=== PATIENT | male | born 1990 | race Caucasian/White ===

== ENCOUNTER → 2018-02-08 07:42 | Day surgery (SDC) | payer BC ==
--- NOTE | 2018-02-02 22:24 | HP ---
PREOPERATIVE HISTORY AND PHYSICAL: DATE OF SURGERY/ADMISSION: 02/08/18 - [facility] DATE OF OFFICE VISIT/ENCOUNTER: 01/13/18 ATTENDING SURGEON: Avril Garcia MD * (DICTATED BY TONY LONGO) PROCEDURE: Left ring finger excision mass. CHIEF COMPLAINT: Mass, left ring finger. HISTORY OF PRESENT ILLNESS: This is a 27-year-old male. 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 He has had it for about 8 months. It bothers him when he curve saw operator things. He does weight lifting regularly and he has trouble doing that because of this lump. There is no injury that he recalls. He denies any associated numbness or tingling. He does not take medications for this problem. After evaluation by Dr. Garcia, he has consented to proceed with surgical intervention at this time in the form of a left ring finger excision mass. PAST MEDICAL HISTORY: Unremarkable. PAST SURGICAL HISTORY: [place] teeth extraction. CURRENT MEDICATIONS: None. ALLERGIES: No known drug allergies. FAMILY MEDICAL HISTORY: Heart disease. SOCIAL HISTORY: The patient is employed as a pharmacist at [employer]. He denies tobacco use and recreational drug use. He does drink alcohol on a social basis. REVIEW OF SYSTEMS: General: Negative for fevers, chills, or night sweats. No known anesthesia problems. HEENT: Negative for headache, lightheadedness, or syncopal episodes. Integumentary: Negative for abrasions, lesions, or open wounds. Cardiothoracic: Negative for hypertension, chest pain, palpitations, or edema. Pulmonary: Negative for shortness of breath with exertion, chronic cough, and COPD. GI: Negative for nausea, vomiting, diarrhea, constipation, or GERD. : Negative for nocturia, urinary frequency, urgency, history of UTIs , or kidney problems. Musculoskeletal: Positive for current complaint. Neurological: Negative for paresthesias, numbness, history of seizure, stroke, or epilepsy. Endocrine: Negative for diabetes and thyroid issues. Hematologic : Negative for easy bruising, anemia, excessive bleeding, or history of DVT. Infectious Disease: Negative for history of MRSA, hepatitis C, or HIV. PHYSICAL EXAMINATION GENERAL: Well-developed, well-nourished 27-year-old male in no acute distress. VITAL SIGNS: Height 5 feet 8 inches, weight 175 pounds. Pulse rate 73, blood pressure 152/89. HEENT: Normocephalic, atraumatic. Pupils are equal, round, and reactive to light and accommodation. Extraocular movements are intact. Throat is clear. NECK: Supple. No palpable lymph nodes. PULMONARY: Lungs are clear to auscultation bilaterally. No wheezes, rales, or rhonchi. CARDIOVASCULAR: Regular rate and rhythm. S1, S2. No murmurs, rubs, or gallops. No edema. ABDOMEN: Positive bowel sounds, soft, nontender. MUSCULOSKELETAL: On exam of his left hand, he has a small cystic mass at the MP flexion crease at the left ring finger. It is tender to palpation. There is a negative Tinel's sign. He can fully flex and extend his finger. Skin is intact. Neurovascular function is intact. NEUROLOGIC: Alert and oriented x3. Cranial nerves II through XII are intact. IMAGING STUDIES: X-ray AP, lateral, and oblique of the left ring finger appear normal. IMPRESSION: Ganglion cyst of the tendon sheath of the left ring finger. PLAN: The patient is scheduled to undergo a left ring finger excision mass with Dr. Garcia on 02/08/18. He will return to the office 10 to 14 days postop for followup and suture removal. A prescription for Ultracet was e-scribed to the patient's pharmacy for postoperative pain management. TONY LONGO [id number]/[facility] #: [id number] [place]
[~2018-02-08 07:42] MED LIST: Buffered Lidocaine 0.9% SYRIN* 5 ML/SYR SYRINGE INTRADERM ONE; Lidocaine 1% INJ* 10 MG/ML 30 ML SDV ONE; Midazolam* 1 MG/ML 2 ML VIAL (2 MG) ONE; Naloxone* 0.4 MG/ML 1 ML VIAL IV PRN; fentaNYL* 50 MCG/ML 2 ML VIAL (100 MCG VIAL) ONE
[2018-02-08 10:47] VITALS: BP 140/78
--- NOTE | 2018-02-09 02:17 | OP ---
DATE OF OPERATION: 02/08/18 - [facility] DATE OF : 86 SURGEON: Avril Garcia MD [employer] CONSULTANT: TONY Wilder ANESTHESIA: Local MAC. PRE-OP DIAGNOSIS: Left ring finger mass. POST-OP DIAGNOSIS: Left ring finger mass. OPERATIVE PROCEDURE: Removal of left ring finger mass. ESTIMATED BLOOD LOSS: Zero. TOURNIQUET TIME: About 10 minutes. INDICATIONS: Dino is a 27-year-old male with a painful mass at the MP flexion crease of his left ring finger. He presents for removal. DESCRIPTION OF PROCEDURE: The patient was brought to the operating room and was given a sedation anesthetic and a local infiltration with 10 cc of 1% plain lidocaine as a digital block to the left ring finger. The skin of his left hand and forearm was prepped and draped in the usual sterile fashion. The hand and forearm were exsanguinated and the tourniquet elevated to 250 mmHg. A transverse incision was made centered over the mass. We dissected bluntly through the subcutaneous tissue. The digital neurovascular bundles were retracted by the surgical services asst, Radha Perez. The mass was a ganglion cyst emanating from the flexor tendon sheath. It was sharply dissected from the sheath with a small portion of the sheath and sent for pathology. The underlying flexor tendons were in good condition. The wound was irrigated and skin edges reapproximated with 4-0 nylon suture. The wound was dressed with Xeroform, 4x4, Webril, and Coban. The patient tolerated the procedure well and was brought to the recovery room in good condition. [id number]/[facility] #: [id number] [facility]
== END | disposition home or self-care (01) ==
LOC: OR 07:42
PROVIDERS: ATTEND Orthopaedic Surgery
DX: M67.442 Ganglion, left hand (principal)
CPT/HCPCS: 88304; J2250; J3010